=== PATIENT | male | born 1965 | race Caucasian/White ===

== ENCOUNTER 2018-12-11 19:07 | Emergency (ER) | payer OTHER ==
[~2018-12-11] VITALS: Ht 167.6 cm; Wt 104.5 kg
[2018-12-11] MEDS ORDERED: LISI-660 PO (19:40)
[2018-12-11] MEDS ORDERED: OMEP20 PO (19:40)
[2018-12-11] MEDS ORDERED: RANI150T7 PO (19:40)
[2018-12-11] MEDS ORDERED: SIMV-260 PO (19:40)
[2018-12-12] MEDS ORDERED: KETOROLAC TROMETHAMINE 60 MG/2 ML VIAL IM ONE (01:00)
[2018-12-12 01:15] VITALS: BP 122/75
[2018-12-12] MEDS ORDERED: OMEPRAZOLE 20 MG CAPSULE PO ONE (01:15)
== END 2018-12-12 01:30 | disposition home or self-care (01) ==
LOC: EMS 19:08
DX: M54.5 Low back pain (principal); I10 Essential (primary) hypertension; E78.00 Pure hypercholesterolemia, unspecified; K21.9 Gastro-esophageal reflux disease without esophagitis; Z79.899 Other long term (current) drug therapy
CPT/HCPCS: 96372; 99283; J1885